=== PATIENT | male | born 1970 | race Caucasian/White ===

== ENCOUNTER 2018-04-07 01:10 | Emergency (ER) | payer OTHER ==
[~2018-04-07] VITALS: Ht 170.2 cm; Wt 88.0 kg
[2018-04-07] MEDS ORDERED: FAMOTIDINE/PF INJ 20 MG/2 ML VIAL IV ONE ×2 (01:30→01:55)
[2018-04-07] MEDS ORDERED: ONDANSETRON HCL/PF 4 MG/2 ML VIAL IVP ONE (01:30)
[2018-04-07] MEDS ORDERED: MORPHINE SULFATE INJ 2 MG/ML DISP.SYRIN IV ONE (01:30)
--- NOTE | 2018-04-07 01:53 | NUR ---
CALLED RADOOLOGY FOR CT
[2018-04-07] MEDS ORDERED: ONDANSETRON HCL/PF 4 MG/2 ML VIAL ONE (01:54)
[2018-04-07] MEDS ORDERED: MORPHINE SULFATE INJ 4 MG/ML DISP.SYRIN ONE (01:54)
[2018-04-07 01:57] LABS: BASOPHILS # (AUTO) 0.1 /CMM (0.0-0.2); BASOPHILS % (AUTO) 0.8 % (0.0-2.0); EOSINOPHILS % (AUTO) 2.3 % (0.0-6.0); HEMATOCRIT 45 % (39-51); HEMOGLOBIN 15.3 g/dL (13.5-17.5); LYMPHOCYTES # (AUTO) 2.6 /CMM (0.8-4.8); LYMPHOCYTES % (AUTO) 29.8 % (20.0-44.0); MEAN CORPUSCULAR HGB CONC 34 g/dl (31.0-36.0); MEAN CORPUSCULAR VOLUME 88 fL (80-96); MONOCYTES # (AUTO) 0.3 /CMM (0.1-1.30); NEUTROPHILS # (AUTO) 5.4 /CMM (1.8-8.9); NEUTROPHILS % (AUTO) 63.1 % (43.0-81.0); PLATELET COUNT (AUTO) 206 /CMM (150-450); RDW COEFFICIENT OF VARIATION 11.9 (11.5-15.0); RED BLOOD CELL COUNT(AUTO) 5.15 MIL/uL (4.5-6.0); WHITE BLOOD COUNT (AUTO) 8.6 K/uL (4.3-11.0)
[2018-04-07 02:06] LABS: CALCIUM, SERUM 9.3 mg/dL (8.5-10.1); CARBON DIOXIDE 27 mmol/L (21-32); CHLORIDE 97 mmol/L (98-107); CREATININE 0.7 mg/dL (0.6-1.3); GLUCOSE 313 mg/dL (74-106); POTASSIUM 3.8 mmol/L (3.5-5.1); SODIUM SERUM 133 mmol/L (136-145); UREA NITROGEN, BLOOD 10 mg/dL (7-18)
[2018-04-07 02:12] LABS: ALANINE AMINOTRANSFERASE 27 U/L (12-78); ALKALINE PHOSPHATASE 51 U/L (46-116); ASPARTATE AMINOTRANSFERASE 7 U/L (15-37); BILIRUBIN,TOTAL 0.2 mg/dL (0.2-1.0); LIPASE 211 U/L (73-393); TOTAL PROTEIN, SERUM 8.1 g/dL (6.4-8.2)
--- NOTE | 2018-04-07 02:12 | NUR ---
PT SEEN AND EVAL ER , TX ORDERS ENTERED, TAKEN TO CT AND BACK, ALL MEDICATIONS ORDERED GIVEN, AWAITING PENDING CX'S. WILL F/U.
[2018-04-07 02:14] LABS: TROPONIN I < 0.017 ng/mL (0.00-0.056)
--- NOTE | 2018-04-07 02:51 | NUR ---
DR. QUEEN SPEAKING TO PT REGARDING RESULTS.
[2018-04-07] MEDS ORDERED: HYDROCODONE/APAP 5/325MG 1 EACH TABLET PO ONE (03:00)
[2018-04-07] MEDS ORDERED: HYDROCODONE/APAP 5/325MG 1 EACH TABLET ONE (03:03)
--- NOTE | 2018-04-07 03:11 | NUR ---
Patient discharged to home in stable condition. Written and verbal after care instructions given. Patient verbalizes understanding of instruction. RX given by ER MD medication instruction given, w/stable gait, adviced on not driving.
[2018-04-16 10:42] VITALS: BP 172/105
== END 2018-04-07 03:11 | disposition home or self-care (01) ==
LOC: ER 01:14
DX: K85.90 Acute pancreatitis without necrosis or infection, unspecified (principal); K29.00 Acute gastritis without bleeding; I10 Essential (primary) hypertension; E11.9 Type 2 diabetes mellitus without complications
CPT/HCPCS: 36415; 80048-TC; 80076-TC; 83690-TC; 84484-TC; 85025-TC; A4606; J2270; J2405; J3490; Z7610

== ENCOUNTER 2019-07-12 04:24 | Inpatient (IN) | payer OTHER ==
[2019-07-12] VITALS (30 sets, daily range): BP systolic 116–176; BP diastolic 52–103
[~2019-07-12] VITALS: Ht 170.2 cm; Wt 96.6 kg
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
[2019-07-12] MEDS ORDERED: ONDANSETRON HCL/PF 4 MG/2 ML VIAL IM ONE (04:30)
[2019-07-12] MEDS ORDERED: ONDANSETRON HCL/PF 4 MG/2 ML VIAL ONE ×4 (04:32→06:08)
--- NOTE | 2019-07-12 04:49 | NUR ---
PT TAKEN TO CT
--- NOTE | 2019-07-12 05:05 | NUR ---
PT BACK FROM RADIOLOGY. PENDING CT HEAD RESULT.
--- NOTE | 2019-07-12 05:06 | NUR ---
PT BACK FROM CT
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
[2019-07-12] MEDS ORDERED: MORPHINE SULFATE INJ 4 MG/ML DISP.SYRIN ONE (06:08)
[2019-07-12 06:13] LABS: BASOPHILS # (AUTO) 0.1 /CMM (0.0-0.2); BASOPHILS % (AUTO) 0.4 % (0.0-2.0); EOSINOPHILS % (AUTO) 1.9 % (0.0-6.0); HEMATOCRIT 46 % (39-51); HEMOGLOBIN 15.6 g/dL (13.5-17.5); LYMPHOCYTES # (AUTO) 3.2 /CMM (0.8-4.8); LYMPHOCYTES % (AUTO) 20.6 % (20.0-44.0); MEAN CORPUSCULAR HGB CONC 34 g/dl (31.0-36.0); MEAN CORPUSCULAR VOLUME 87 fL (80-96); MONOCYTES # (AUTO) 0.6 /CMM (0.1-1.30); MONOCYTES % (AUTO) 3.8 % (2.0-12.0); NEUTROPHILS # (AUTO) 11.3 /CMM (1.8-8.9); NEUTROPHILS % (AUTO) 73.3 % (43.0-81.0); PLATELET COUNT (AUTO) 196 /CMM (150-450); RED BLOOD CELL COUNT(AUTO) 5.26 MIL/uL (4.5-6.0); WHITE BLOOD COUNT (AUTO) 15.4 K/uL (4.3-11.0)
--- NOTE | 2019-07-12 06:21 | NUR ---
PT TAKEN TO CT
[2019-07-12 06:26] LABS: ALBUMIN 4.2 g/dL (3.4-5.0); BILIRUBIN,TOTAL 0.3 mg/dL (0.2-1.0); CALCIUM, SERUM 9.1 mg/dL (8.5-10.1); CREATININE 0.9 mg/dL (0.6-1.3); POTASSIUM 3.6 mmol/L (3.5-5.1); TOTAL PROTEIN, SERUM 8.3 g/dL (6.4-8.2)
[2019-07-12] MEDS ORDERED: ONDANSETRON HCL/PF 4 MG/2 ML VIAL IV ONE (06:30)
[2019-07-12] MEDS ORDERED: MORPHINE SULFATE INJ 2 MG/ML DISP.SYRIN IV ONE (06:30)
[2019-07-12] MEDS ORDERED: IV NS 0.9% 500 ML BAG IV ONE (06:30)
[2019-07-12] MEDS ORDERED: hydrALAZINE HCL IV 20 MG VIAL ONE ×2 (06:42→07:28)
--- NOTE | 2019-07-12 06:45 | NUR ---
PT BACK FROM CT
[2019-07-12] MEDS ORDERED: hydrALAZINE HCL IV 20 MG VIAL IV ONE ×2 (07:00→07:30)
--- NOTE | 2019-07-12 07:20 | NUR ---
REPORT GIVEN TO MILAN KOHLER
--- NOTE | 2019-07-12 07:30 | NUR ---
ENDORSEMENT RECEIVED FROM ALEJANDRA YATES FOR RIO
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
[2019-07-12] MEDS ORDERED: *INSULIN REGULAR(HUMULIN R)HUM 100 UNIT/ML VIAL SQ PRN (08:00)
[2019-07-12] MEDS ORDERED: ACETAMINOPHEN 325 MG TABLET PO PRN (08:00)
[2019-07-12] MEDS ORDERED: DEXTROSE 50%-WATER 50 ML DISP.SYRIN IV PRN (08:00)
[2019-07-12] MEDS ORDERED: ZOLPIDEM TARTRATE 5 MG TABLET PO PRN (08:00)
[2019-07-12] MEDS ORDERED: HYDROMORPHONE INJ 0.5 MG/0.5 ML SYRINGE IV PRN (08:00)
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
--- NOTE | 2019-07-12 08:00 | NUR ---
WHEELED OUT TO ICU WITH RN AND TECH
--- NOTE | 2019-07-12 09:00 | NUR ---
COSMETOLOGY PROFESSOR NOTES SEEN AND EVALUATED BY DR MEDINA , DISCUSSED LABS , NEURO ASSESSMENT WNL , AOX4 , AFEBRILE , BP ELEVATED , PER MD CALL DR MATTHEWS FOR CONSULT , AND HE WILL FOLLOW UP ENT OUT PT , NOTIFIED THAT DR ISLAS FROM [facility] THAT IMAGING IS RESULTS ARE ALREADY AVAILABLE , PER DR MEDINA HE WILL REVIEW THE RESULTS .
--- NOTE | 2019-07-12 09:29 | NUR ---
PUG MILL OPERATOR HELPER NOTES paged dr canseco @ , LEFT A MESSAGE , AWAITING FOR CALL BACK
[2019-07-12] MEDS ORDERED: CLONIDINE HCL 0.1 MG TABLET PO PRN (09:30)
[2019-07-12] MEDS: BLOOD SUGAR DIAGNOSTIC 1 EACH STRIP VI SCH ×3 (11:23→22:50)
[2019-07-12] MEDS: INSULIN REGULAR, HUMAN 100 UNIT/ML 3 ML VIAL SQ PRN ×3 (11:26→22:53)
--- NOTE | 2019-07-12 11:28 | NUR ---
GIRL FRIDAY NOTES ASKED PT REGARDING HIS HOME MEDS , PER PATIENT HE IS JUST TAKING INSULIN AT HOME . NOTIFIED
[2019-07-12] MEDS: HYDROMORPHONE 1 MG/1 ML DISP.SYRIN IV PRN (15:57)
[2019-07-12] MEDS: ONDANSETRON HCL/PF 4 MG/2 ML VIAL IV PRN (18:04)
--- NOTE | 2019-07-12 18:21 | NUR ---
PLATE DRILLER NOTES paged dr canseco @ , LEFT A MESSAGE , AWAITING FOR CALL BACK
--- NOTE | 2019-07-12 18:48 | NUR ---
SUPERINTENDENT METER TESTS NOTES PATIENT STABLE AT THIS TIME , AOX4 , DENIES HEADACHE , DIZZINESS AT THIS TIME , NEURO ASSESSMENT WNL , NO WEAKNESS NOTED , NOT IN ACUTE DISTRESS , SPO2 OF 100% VIA 2LPM NC , SR 95 ON BEDSIDE MONITOR , , IV RIGHT AC # 18 AND R HAND # 20 PATENT AND INTACT SL , ALL NEEDS ATTENDED , BED ON LOW AND LOCKED POSITION , SIDE RAILS X2 ,CALL LIGHT WITHIN REACH , REPORT GIVEN TO YVETTE FOR CONTINUITY OF CARE
[2019-07-12] MEDS: HYDROCODONE/APAP 5/325MG 1 EACH TABLET PO PRN (22:54)
[2019-07-13] VITALS (22 sets, daily range): BP systolic 114–155; BP diastolic 71–101
[2019-07-13] MEDS: ONDANSETRON HCL/PF 4 MG/2 ML VIAL IV PRN ×2 (04:01→11:15)
[2019-07-13] MEDS: HYDROMORPHONE 1 MG/1 ML DISP.SYRIN IV PRN ×5 (04:01→20:49)
[2019-07-13 05:11] LABS: BASOPHILS % (AUTO) 0.3 % (0.0-2.0); EOSINOPHILS % (AUTO) 0.9 % (0.0-6.0); HEMATOCRIT 43 % (39-51); HEMOGLOBIN 14.4 g/dL (13.5-17.5); LYMPHOCYTES # (AUTO) 3.5 /CMM (0.8-4.8); LYMPHOCYTES % (AUTO) 31.5 % (20.0-44.0); MEAN CORPUSCULAR HGB CONC 34 g/dl (31.0-36.0); MEAN CORPUSCULAR VOLUME 86 fL (80-96); MONOCYTES # (AUTO) 0.6 /CMM (0.1-1.30); MONOCYTES % (AUTO) 5.5 % (2.0-12.0); NEUTROPHILS # (AUTO) 6.9 /CMM (1.8-8.9); NEUTROPHILS % (AUTO) 61.8 % (43.0-81.0); PLATELET COUNT (AUTO) 205 /CMM (150-450); RED BLOOD CELL COUNT(AUTO) 4.95 MIL/uL (4.5-6.0); WHITE BLOOD COUNT (AUTO) 11.2 K/uL (4.3-11.0)
[2019-07-13 05:42] LABS: CALCIUM, SERUM 8.6 mg/dL (8.5-10.1); CREATININE 0.8 mg/dL (0.6-1.3); POTASSIUM 3.4 mmol/L (3.5-5.1)
--- NOTE | 2019-07-13 07:32 | NUR ---
TIME STUDY ENGINEER OPENING NOTE RECEIVED REPORT FROM [facility] SHIFT NURSE. PT AWAKE IN BED, ALERT AND ORIENTED X 4, ON 02 VIA NC 2L/MIN, SATURATING WELL, RESPIRATIONS EVEN AND UNLABORED, NO SIGNS OF RESPIRATORY DISTRESS NOTED. SINUS RHYTHM ON TELE MONITOR. IV SITE ON RIGHT AC G18 INTACT, PATENT, WITH HEP LOCK IN PLACE. IV SITE ON RIGHT HAND G20 INTACT, PATENT WITH HEP LOCK IN PLACE. BED IN LOW POSITION, LOCKED, CALL LIGHT WITHIN REACH. WILL CONTINUE TO MONITOR CLOSELY
[2019-07-13] MEDS: BLOOD SUGAR DIAGNOSTIC 1 EACH STRIP VI SCH ×4 (07:41→20:41)
[2019-07-13] MEDS: INSULIN REGULAR, HUMAN 100 UNIT/ML 3 ML VIAL SQ PRN ×3 (07:43→17:22)
[2019-07-13] MEDS ORDERED: POTASSIUM CHLORIDE 20 MEQ TAB.PRT.SR PO SCH (10:30)
--- NOTE | 2019-07-13 10:54 | NUR ---
LEFT VIA GURNEY TO CT IN STABLE CONDITION
--- NOTE | 2019-07-13 11:11 | NUR ---
RETURNED TO UNIT IN STABLE CONDITION FROM CT
[2019-07-13] MEDS ORDERED: MECLIZINE HCL 12.5 MG TABLET PO PRN (11:30)
[2019-07-13] MEDS ORDERED: METFORMIN 500 MG TABLET PO SCH (11:30)
[2019-07-13] MEDS ORDERED: POTASSIUM CHLORIDE 20 MEQ TAB.PRT.SR PO ONE (11:30)
[2019-07-13] MEDS: HYDROCODONE/APAP 5/325MG 1 EACH TABLET PO PRN (11:34)
--- NOTE | 2019-07-13 12:15 | NUR ---
TRANSFERRED PT TO MED SURG FLOOR ROOM 111-1
--- NOTE | 2019-07-13 18:54 | NUR ---
MS RN CLOSING NOTE PT AWAKE IN BED, ALERT AND ORIENTED X 4, ON 02 VIA NC 2L/MIN, SATURATING WELL, RESPIRATIONS EVEN AND UNLABORED, NO SIGNS OF RESPIRATORY DISTRESS NOTED. SINUS RHYTHM ON TELE MONITOR. IV SITE ON RIGHT AC G18 INTACT, PATENT, WITH HEP LOCK IN PLACE. IV SITE ON RIGHT HAND G20 INTACT, PATENT WITH HEP LOCK IN PLACE. PROVIDED SAFETY AND COMFORT TO PT THROUGHOUT SHIFT, ALL DUE MEDS GIVEN, NO MENTAL STATUS CHANGES NOTED. BED IN LOW POSITION, LOCKED, CALL LIGHT WITHIN REACH. WILL ENDORSE TO NOC SHIFT NURSE.
[2019-07-13] MEDS ORDERED: INSULIN GLARGINE, 100 UNIT/ML CARTRIDGE SQ SCH (22:00)
[2019-07-14] VITALS: BP 142/92
--- NOTE | 2019-07-14 02:30 | NUR ---
patient awake with complaints of painto the right side of the head. dilaudid 0.5 mg ivp given for pain
[2019-07-14] MEDS: HYDROMORPHONE 1 MG/1 ML DISP.SYRIN IV PRN ×2 (02:37→08:08)
[2019-07-14 04:00] VITALS: BP 136/91
--- NOTE | 2019-07-14 07:21 | NUR ---
report given to the day merly rn about the patient pain and neuro checks
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
[2019-07-14 08:00] VITALS: BP 152/88
[2019-07-14 08:08] LABS: BASOPHILS # (AUTO) 0.1 /CMM (0.0-0.2); BASOPHILS % (AUTO) 0.6 % (0.0-2.0); EOSINOPHILS % (AUTO) 1.6 % (0.0-6.0); HEMATOCRIT 43 % (39-51); HEMOGLOBIN 14.6 g/dL (13.5-17.5); LYMPHOCYTES # (AUTO) 3.3 /CMM (0.8-4.8); LYMPHOCYTES % (AUTO) 38.3 % (20.0-44.0); MEAN CORPUSCULAR HGB CONC 34 g/dl (31.0-36.0); MEAN CORPUSCULAR VOLUME 86 fL (80-96); MONOCYTES # (AUTO) 0.5 /CMM (0.1-1.30); MONOCYTES % (AUTO) 5.4 % (2.0-12.0); NEUTROPHILS # (AUTO) 4.6 /CMM (1.8-8.9); NEUTROPHILS % (AUTO) 54.1 % (43.0-81.0); PLATELET COUNT (AUTO) 183 /CMM (150-450); RED BLOOD CELL COUNT(AUTO) 5.04 MIL/uL (4.5-6.0); WHITE BLOOD COUNT (AUTO) 8.6 K/uL (4.3-11.0)
[2019-07-14] MEDS: BLOOD SUGAR DIAGNOSTIC 1 EACH STRIP VI SCH (08:11)
[2019-07-14] MEDS: INSULIN REGULAR, HUMAN 100 UNIT/ML 3 ML VIAL SQ PRN (08:15)
[2019-07-14 08:16] VITALS: BP 152/88
[2019-07-14] MEDS ORDERED: MECL-159 PO (08:34)
[2019-07-14 08:36] LABS: CALCIUM, SERUM 8.7 mg/dL (8.5-10.1); CREATININE 0.7 mg/dL (0.6-1.3); POTASSIUM 4.3 mmol/L (3.5-5.1)
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
== END 2019-07-14 12:00 | disposition home or self-care (01) | DRG 55 ==
LOC: ER 04:25 → ICU 07:44 → TELE1 07-13 12:06 → MEDSG1 07-13 12:15
PROVIDERS: ADMIT Internal Medicine; ATTEND Internal Medicine
DX: S06.5X9A Traumatic subdural hemorrhage with loss of consciousness of unspecified duration, initial encounter (principal); G93.89 Other specified disorders of brain; S02.119A Unspecified fracture of occiput, initial encounter for closed fracture; S02.19XA Other fracture of base of skull, initial encounter for closed fracture; S06.6X9A Traumatic subarachnoid hemorrhage with loss of consciousness of unspecified duration, initial encounter; E11.9 Type 2 diabetes mellitus without complications; Y08.89XA Assault by other specified means, initial encounter; Y92.89 Other specified places as the place of occurrence of the external cause; I10 Essential (primary) hypertension; F17.200 Nicotine dependence, unspecified, uncomplicated; S01.81XA Laceration without foreign body of other part of head, initial encounter; Z83.3 Family history of diabetes mellitus
CPT/HCPCS: 36415; 70450-TC; 70480-TC; 70486-TC; 80048-TC; 80053-TC; 82962-TC; 85025-TC; 85730-TC; 87081-TC; 97116-TC; 97530-TC; A6403; G0378; J0360; J1170; J1815; J2270; J2405

== ENCOUNTER 2021-12-27 17:36 | Inpatient (IN) | payer OTHER ==
[~2021-12-27] VITALS: Ht 170.2 cm; Wt 107.0 kg
[~2021-12-27 17:36] MED LIST: MECL-159 PO
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
[2021-12-27] MEDS ORDERED: IOHEXOL-350 100 ML VIAL IV ONE (17:57)
[2021-12-27] MEDS ORDERED: IV NS 0.9% 250 ML IV ONE (17:57)
--- NOTE | 2021-12-27 17:57 | NUR ---
CODE STROKE AT 1759
--- NOTE | 2021-12-27 17:58 | NUR ---
PT TAKEN TO CT.
--- NOTE | 2021-12-27 18:00 | NUR ---
NURSING SUP AT BEDSIDE.
[2021-12-27] MEDS ORDERED: INSU100I26 SQ (18:03)
[2021-12-27] MEDS ORDERED: INSU100I34 SQ (18:03)
[2021-12-27] MEDS ORDERED: ATEN100T PO (18:03)
[2021-12-27] MEDS ORDERED: OMEP40CA21 PO (18:03)
[2021-12-27] MEDS ORDERED: EZET10TA16 PO (18:03)
[2021-12-27] MEDS ORDERED: AMLO-213 PO (18:03)
[2021-12-27] MEDS ORDERED: LISI1TAB29 PO (18:03)
--- NOTE | 2021-12-27 18:12 | NUR ---
PT BACK FROM CT 1806
--- NOTE | 2021-12-27 18:14 | NUR ---
Both pt and family aware of plan of care
--- NOTE | 2021-12-27 18:23 | NUR ---
NEUROLOGIST ON TELEMED MACHINE SPEAKING TO THE PATIENT.
[2021-12-27 18:51] LABS: CALCIUM, SERUM 9.3 mg/dL (8.5-10.1); CARBON DIOXIDE 27 mmol/L (21-32); CHLORIDE 101 mmol/L (98-107); CREATININE 0.9 mg/dL (0.6-1.3); GLUCOSE 134 mg/dL (74-106); POTASSIUM 4.8 mmol/L (3.5-5.1); SODIUM SERUM 140 mmol/L (136-145); UREA NITROGEN, BLOOD 11 mg/dL (7-18)
[2021-12-27 19:56] LABS: BASOPHILS % (AUTO) 0.5 % (0.0-2.0); EOSINOPHILS % (AUTO) 2.8 % (0.0-6.0); HEMATOCRIT 46 % (39-51); HEMOGLOBIN 15.9 g/dL (13.5-17.5); LYMPHOCYTES # (AUTO) 3.3 K/uL (0.8-4.8); LYMPHOCYTES % (AUTO) 33.3 % (20.0-44.0); MEAN CORPUSCULAR HGB CONC 35 g/dl (31.0-36.0); MEAN CORPUSCULAR VOLUME 84 fL (80-96); MONOCYTES # (AUTO) 0.5 K/uL (0.1-1.30); MONOCYTES % (AUTO) 4.8 % (2.0-12.0); NEUTROPHILS # (AUTO) 5.9 K/uL (1.8-8.9); NEUTROPHILS % (AUTO) 58.6 % (43.0-81.0); PLATELET COUNT (AUTO) 248 K/uL (150-450); RED BLOOD CELL COUNT(AUTO) 5.48 MIL/uL (4.5-6.0); WHITE BLOOD COUNT (AUTO) 10.1 K/uL (4.3-11.0)
[2021-12-27] MEDS ORDERED: ASPIRIN 81 MG TAB.CHEW PO ONE (20:30)
--- NOTE | 2021-12-27 21:09 | NUR ---
BS 112
--- NOTE | 2021-12-27 22:27 | NUR ---
FAX UPDATED NOTE TO [phone]
--- NOTE | 2021-12-28 01:04 | NUR ---
[facility] [phone]
--- NOTE | 2021-12-28 03:28 | NUR ---
[facility] C[employer] RAILRO[employer] CAR LOADER: [phone]
[2021-12-28] MEDS ORDERED: *INSULIN REGULAR(HUMULIN R)HUM 100 UNIT/ML VIAL SQ PRN (05:00)
[2021-12-28] MEDS ORDERED: HYDROCODONE/APAP 5/325MG TABLET PO PRN ×2 (05:00→13:30)
[2021-12-28] MEDS ORDERED: DEXTROSE 50%-WATER 50 ML DISP.SYRIN IV PRN (05:00)
[2021-12-28] MEDS ORDERED: ACETAMINOPHEN 325 MG TABLET PO PRN (05:00)
[2021-12-28] MEDS ORDERED: ZOLPIDEM TARTRATE 5 MG TABLET PO PRN (05:00)
--- NOTE | 2021-12-28 05:02 | NUR ---
misdraw hand at PT's bedside
[2021-12-28 05:20] LABS: BASOPHILS # (AUTO) 0.1 K/uL (0.0-0.2); BASOPHILS % (AUTO) 0.7 % (0.0-2.0); EOSINOPHILS % (AUTO) 4.2 % (0.0-6.0); HEMATOCRIT 45 % (39-51); HEMOGLOBIN 15.3 g/dL (13.5-17.5); LYMPHOCYTES # (AUTO) 3.5 K/uL (0.8-4.8); LYMPHOCYTES % (AUTO) 39.2 % (20.0-44.0); MEAN CORPUSCULAR HGB CONC 34 g/dl (31.0-36.0); MEAN CORPUSCULAR VOLUME 84 fL (80-96); MONOCYTES # (AUTO) 0.4 K/uL (0.1-1.30); MONOCYTES % (AUTO) 4.3 % (2.0-12.0); NEUTROPHILS # (AUTO) 4.6 K/uL (1.8-8.9); NEUTROPHILS % (AUTO) 51.6 % (43.0-81.0); PLATELET COUNT (AUTO) 212 K/uL (150-450); RED BLOOD CELL COUNT(AUTO) 5.37 MIL/uL (4.5-6.0); WHITE BLOOD COUNT (AUTO) 8.9 K/uL (4.3-11.0)
[2021-12-28 05:53] LABS: CREATININE 0.9 mg/dL (0.6-1.3); POTASSIUM 3.7 mmol/L (3.5-5.1)
[2021-12-28 06:08] LABS: THYROID STIMULATING HORMONE 2.643 uIU/mL (0.358-3.74)
--- NOTE | 2021-12-28 07:25 | NUR ---
PT RESTING COMFORTABLY IN BED, EASY TO AROUSE. ALL NEEDS MET AT THIS TIME.
[2021-12-28] MEDS: PANTOPRAZOLE 40 MG TABLET.DR PO SCH (07:30)
[2021-12-28] MEDS ORDERED: PANTOPRAZOLE 40 MG TABLET.DR PO ONE (07:30)
[2021-12-28] MEDS: BLOOD SUGAR DIAGNOSTIC 1 EACH STRIP VI SCH ×4 (08:22→21:57)
[2021-12-28] MEDS: INSULIN REGULAR, HUMAN 100 UNIT/ML 3 ML VIAL SQ PRN (08:25)
--- NOTE | 2021-12-28 08:45 | NUR ---
SPEECH THERAPIST AT BEDSIDE
[2021-12-28] MEDS ORDERED: AMLODIPINE BESYLATE 5 MG TABLET PO SCH (09:00)
[2021-12-28] MEDS ORDERED: HYDROCHLOROTHIAZIDE 25 MG TABLET PO SCH (09:00)
[2021-12-28] MEDS: INSULIN GLARGINE, 100 UNIT/ML CARTRIDGE SQ SCH (09:01)
--- NOTE | 2021-12-28 09:01 | NUR ---
MRI CHECKLIST DONE AND WITHIN PT'S CHART
--- NOTE | 2021-12-28 09:12 | NUR ---
PHYSICAL THERAPY AT BEDSIDE
--- NOTE | 2021-12-28 09:16 | NUR ---
PT TAKEN TO MRI VIA WHEELCHAIR
[2021-12-28] MEDS: ATENOLOL 50 MG TABLET PO SCH (09:55)
[2021-12-28] MEDS: ASPIRIN 81 MG TAB.CHEW PO SCH (09:55)
[2021-12-28] MEDS: CLOPIDOGREL BISULFATE 75 MG TABLET PO SCH (09:55)
[2021-12-28] MEDS: LISINOPRIL (20MG) 20 MG TABLET PO SCH (09:55)
--- NOTE | 2021-12-28 09:55 | NUR ---
PT RETURNED FROM MRI VIA WHEELCHAIR
[2021-12-28] MEDS ORDERED: ATENOLOL 50 MG TABLET ONE (09:57)
[2021-12-28] MEDS ORDERED: ASPIRIN 81 MG TAB.CHEW ONE (09:58)
[2021-12-28] MEDS ORDERED: CLOPIDOGREL BISULFATE 75 MG TABLET ONE (09:58)
[2021-12-28] MEDS ORDERED: LISINOPRIL (20MG) 20 MG TABLET ONE (09:58)
[2021-12-28] MEDS ORDERED: HYDROCHLOROTHIAZIDE 25 MG TABLET ONE (09:58)
[2021-12-28] MEDS ORDERED: AMLODIPINE BESYLATE 10 MG TABLET ONE (09:58)
--- NOTE | 2021-12-28 11:17 | NUR ---
GOT BED 324-2
--- NOTE | 2021-12-28 11:28 | NUR ---
report given to Beatriz to continue care.
--- NOTE | 2021-12-28 11:45 | NUR ---
the patient is transfered to room 324-2 in stable condition and per acls policy
[2021-12-28 12:00] VITALS: BP 151/82
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
[2021-12-28 16:00] VITALS: BP 128/68
--- NOTE | 2021-12-28 17:50 | NUR ---
SHIFT SUMMARY. PATIENT IS A/O X4. AMBULATORY. ABLE TO MAKE NEEDS KNOWN. ON ROOM AIR, SATURATING WELL. SKIN IS INTACT. IV ACCESS ON R AC #18G, INTACT AND PATENT. SAFETY MEASURES MAINTAINED. BED IN LOWEST POSITION, BRAKES LOCKED. SIDE RAILS UP X2. CALL LIGHT WITHIN REACH. WILL ENDORSE CONTINUITY OF CARE TO ONCOMING SHIFT.
[2021-12-28 20:00] VITALS: BP 132/78
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
[2021-12-28] MEDS ORDERED: EZETIMIBE 10 MG TABLET PO SCH (22:00)
[2021-12-28] MEDS ORDERED: ATORVASTATIN 40 MG TABLET PO SCH (22:00)
--- NOTE | 2021-12-28 22:00 | NUR ---
TAB CARD PRESS OPERATOR NOTES ACCU-CHECK BLOOD SUGAR CHECK 182,COVERED WITH HUMULIN R 3 UNITS PER SLIDING SCALE.WILL MONITOR FOR HYPOGLYCEMIA.
[2021-12-29] VITALS: BP 138/84
[2021-12-29 04:00] VITALS: BP 146/79
--- NOTE | 2021-12-29 05:30 | NUR ---
FENDER MECHANIC NOTES ACCU-CHECK BLOOD SUGAR CHECK 159,COVERED WITH HUMULIN R 2 UNITS PER SLIDING SCALE.
[2021-12-29] MEDS: BLOOD SUGAR DIAGNOSTIC 1 EACH STRIP VI SCH ×2 (05:49→11:48)
[2021-12-29] MEDS: INSULIN REGULAR, HUMAN 100 UNIT/ML 3 ML VIAL SQ PRN ×2 (05:51→11:48)
[2021-12-29 06:42] LABS: BASOPHILS # (AUTO) 0.1 K/uL (0.0-0.2); BASOPHILS % (AUTO) 0.5 % (0.0-2.0); EOSINOPHILS % (AUTO) 3.6 % (0.0-6.0); HEMATOCRIT 43 % (39-51); HEMOGLOBIN 14.8 g/dL (13.5-17.5); LYMPHOCYTES # (AUTO) 3.8 K/uL (0.8-4.8); LYMPHOCYTES % (AUTO) 38.4 % (20.0-44.0); MEAN CORPUSCULAR HGB CONC 34 g/dl (31.0-36.0); MEAN CORPUSCULAR VOLUME 84 fL (80-96); MONOCYTES # (AUTO) 0.5 K/uL (0.1-1.30); MONOCYTES % (AUTO) 5.4 % (2.0-12.0); NEUTROPHILS # (AUTO) 5.1 K/uL (1.8-8.9); NEUTROPHILS % (AUTO) 52.1 % (43.0-81.0); PLATELET COUNT (AUTO) 218 K/uL (150-450); RED BLOOD CELL COUNT(AUTO) 5.14 MIL/uL (4.5-6.0); WHITE BLOOD COUNT (AUTO) 9.8 K/uL (4.3-11.0)
[2021-12-29 06:52] LABS: CALCIUM, SERUM 9.2 mg/dL (8.5-10.1); CREATININE 0.9 mg/dL (0.6-1.3); POTASSIUM 3.6 mmol/L (3.5-5.1)
--- NOTE | 2021-12-29 07:18 | NUR ---
MS RN NOTES SLEEP WELL AT NIGHT,NO PAIN ,NO SOB,AWAITING PT/OT,IN NO ACUTE DISTRESS.
[2021-12-29] MEDS ORDERED: Medication Not On Formulary EA (Omeprazole 40 MG) PO SCH (07:30)
--- NOTE | 2021-12-29 07:33 | NUR ---
RN OPENING NOTE PATIENT IS ASLEEP IN BED, EASILY AWAKENED, A/O X4. ABLE TO MAKE NEEDS KNOWN. ON ROOM AIR, SKIN IS INTACT. IV ACCESS ON R AC #18G,. SAFETY MEASURES MAINTAINED. BED IN LOWEST POSITION, BRAKES LOCKED. SIDE RAILS UP X2. CALL LIGHT WITHIN REACH. MONITOR / ASSIST
[2021-12-29] MEDS: PANTOPRAZOLE 40 MG TABLET.DR PO SCH (07:54)
[2021-12-29] MEDS: ASPIRIN 81 MG TAB.CHEW PO SCH (08:13)
[2021-12-29] MEDS: ATENOLOL 50 MG TABLET PO SCH (08:14)
[2021-12-29 08:15] VITALS: BP 137/93
[2021-12-29] MEDS: LISINOPRIL (20MG) 20 MG TABLET PO SCH (08:15)
[2021-12-29] MEDS: CLOPIDOGREL BISULFATE 75 MG TABLET PO SCH (08:15)
[2021-12-29] MEDS: INSULIN GLARGINE, 100 UNIT/ML CARTRIDGE SQ SCH (08:25)
[2021-12-29] MEDS ORDERED: ATOR40TA PO (08:39)
[2021-12-29] MEDS ORDERED: ASPI-1169 PO (08:39)
[2021-12-29] MEDS ORDERED: CLOP75TA15 PO (08:39)
[2021-12-29] MEDS ORDERED: ATENOLOL 100 MG PO SCH (09:00)
[2021-12-29] MEDS ORDERED: EZETIMIBE 10 MG TABLET PO SCH (09:00)
[2021-12-29] MEDS ORDERED: AMLODIPINE BESYLATE 10 MG TABLET PO SCH (09:00)
[2021-12-29] MEDS ORDERED: Medication Not On Formulary EA (Lisinopril/Hydrochlorothiazide (Lisinopril-Hctz 20-25 Mg PO SCH (09:00)
--- NOTE | 2021-12-29 12:35 | NUR ---
ELECTRONICS MAINTENANCE TECHNICIAN NOTE- PT SEEN BY PHYSICAL THERAPY THIS MORNING PER DR MEDINA.AMBULATING STEADY. INSTRUCTIONS PROVIDED TO PT. VS STABLE. DC INSTRUCTIONS REVIEWED AND UNDERSTOOD. IV SITE DC'D, ID WRISTBAND REMOVED. ESCORTED OFF UNIT BY STAFF AND FAMILY
== END 2021-12-29 12:25 | disposition home health service (06) | DRG 45 ==
LOC: ER 17:53 → TRANSITION 12-28 04:37 → TELE 12-28 11:25
PROVIDERS: ADMIT Internal Medicine; ATTEND Internal Medicine
DX: I63.9 Cerebral infarction, unspecified (principal); E11.9 Type 2 diabetes mellitus without complications; I10 Essential (primary) hypertension; E78.5 Hyperlipidemia, unspecified; R47.81 Slurred speech; R29.810 Facial weakness; E66.9 Obesity, unspecified; Z68.37 Body mass index [BMI] 37.0-37.9, adult; G83.21 Monoplegia of upper limb affecting right dominant side; R29.704 NIHSS score 4; Z20.822 Contact with and (suspected) exposure to COVID-19; F17.210 Nicotine dependence, cigarettes, uncomplicated
CPT/HCPCS: 36415; 70450-TC; 70496-TC; 70498-TC; 70551-TC; 71045-TC; 80048-TC; 80061-TC; 82962-TC; 84443-TC; 84484-TC; 85025-TC; 85730-TC; 87081-TC; 92526; 92611-TC; 93307-TC; 97110-TC; 97116-TC; 97530-TC; C9803; G0378; J1815; J7050; Q9967